=== PATIENT | male | born 1985 | race Caucasian/White ===

== ENCOUNTER 2017-03-10 14:43 | Emergency (ER) | payer OTHER ==
[2017-03-10] MEDS ORDERED: ACETAMINOPHEN TAB 500 MG TAB PO STA (16:18)
[2017-03-10 16:54] LABS: Appearance,Urine Clear (Clear); Basophils # (A) 0.1 k/uL (0-0.2); Basophils % (A) 1 %; Bilirubin,Urine Negative (Negative); CH 32.1; CHCM 34.3; Eosinophils # (A) 0.2 k/uL (0-0.7); Eosinophils % (A) 2 %; Glucose,Urine (UA) Negative (Negative); HDW 2.41; HGB 17.7 gm/dL (13.0-17.5); Ketones,Urine Negative (Negative); Leukocyte Esterase,Urine Negative (Negative); Luc # (Auto) 0.19; Luc % (Auto) 1; Lymphocytes # (A) 2.5 k/uL (1.0-4.8); Lymphocytes % (A) 16 %; MCH 31.5 pg (25.0-35.0); MCHC 33.4 g/dL (31.0-37.0); MCV 94.2 fL (80.0-100.0); Mean Platelet Volume 7.3; Monocytes # (A) 0.9 k/uL (0-1.0); Monocytes % (A) 6 %; Neutrophils # (A) 11.9 k/uL (1.3-7.7); Neutrophils % (A) 75 %; Nitrite,Urine Negative (Negative); PH, Urine 5.5 (5.0-8.0); Protein,Urine Trace (Negative); RBC 5.62 m/uL (4.30-5.90); RDW 13.6 % (11.5-15.5); Specific Gravity,Urine 1.028 (1.001-1.035); UA Billing (MACRO vs. MICRO) CHEM; Urobilinogen,Urine <2.0 mg/dL (<2.0); WBC 15.8 k/uL (3.8-10.6); WBC (Perox) 14.86
--- NOTE | 2017-03-10 16:55 | ED ---
Psych HPI <Leighton Almodovar - Last Filed: 03/10/17 19:04> - General Source: patient, RN notes reviewed Mode of arrival: ambulatory Limitations: no limitations <Law Novoa - Last Filed: 03/11/17 14:06> - General Chief Complaint: Psychiatric Symptoms Stated Complaint: anxiety Time Seen by Provider: 03/10/17 15:51 - History of Present Illness Initial Comments: 31-year-old male present emergency department for psychiatric evaluation. Patient states that most of his life he has felt Paranoid and felt that there people conspiring about him. Patient states that he knows these are not reality ago he states he cannot stop thoughts. Patient states he never seen anybody for these thoughts or feelings. Patient denies any suicidal or homicidal thoughts. Patient states it is felt that his hurt people emotionally. Patient states that he does not tolerate the symptoms anymore that is very anxious and is freaking out. Patient states that he feels that he is scaring his family including his parents. Patient states she has no physical complaints. Denies any cold-like symptoms including cough, runny nose , sore throat, abdominal pain, nausea vomiting. Patient is requesting STD testing even though and is symptom-free he states he just wants recheck. (Law Novoa) - Related Data Home Medications Medication Instructions Recorded Confirmed No Known Home Medications [No 03/10/17 03/10/17 Known Home Medications] Allergies Allergy/AdvReac Type Severity Reaction Status Date / Time No Known Allergies Allergy Verified 03/10/17 16:21 Review of Systems ROS Other: All systems not noted in ROS Statement are negative. <Leighton Almodovar - Last Filed: 03/10/17 19:04> ROS Other: All systems not noted in ROS Statement are negative. <Law Novoa - Last Filed: 03/11/17 14:06> ROS Statement: Those systems with pertinent positive or pertinent negative responses have been documented in the HPI. Past Medical History Past Medical History: No Reported History History of Any Multi-Drug Resistant Organisms: None Reported Past Surgical History: No Surgical Hx Reported Past Psychological History: Anxiety, Bipolar, Depression, Panic Disorder Smoking Status: Current every day smoker Past Alcohol Use History: None Reported Past Drug Use History: None Reported <Law Novoa - Last Filed: 03/11/17 14:06> General Exam Limitations: no limitations General appearance: alert, in no apparent distress Head exam: Present: atraumatic, normocephalic, normal inspection Eye exam: Present: normal appearance, PERRL, EOMI. Absent: scleral icterus, conjunctival injection, periorbital swelling ENT exam: Present: normal exam, normal oropharynx, mucous membranes moist, TM's normal bilaterally, normal external ear exam Neck exam: Present: normal inspection, full ROM. Absent: tenderness, meningismus, lymphadenopathy Respiratory exam: Present: normal lung sounds bilaterally. Absent: respiratory distress, wheezes, rales, rhonchi, stridor Cardiovascular Exam: Present: normal rhythm, tachycardia, normal heart sounds. Absent: systolic murmur, diastolic murmur, rubs, gallop, clicks GI/Abdominal exam: Present: soft, normal bowel sounds. Absent: distended, tenderness, guarding, rebound, rigid Neurological exam: Present: alert, oriented X3, CN II-XII intact Psychiatric exam: Present: flat affect Skin exam: Present: warm, dry, intact, normal color. Absent: rash <Law Novoa - Last Filed: 03/11/17 14:06> Course <Leighton Almodovar - Last Filed: 03/10/17 19:04> <Law Novoa - Last Filed: 03/11/17 14:06> Vital Signs 03/10/17 03/10/17 03/10/17 15:12 17:00 18:43 Temperature 99.8 F H 99 F Pulse Rate 113 H 84 Respiratory 18 20 Rate Blood Pressure 135/84 136/87 O2 Sat by Pulse 99 98 Oximetry 03/11/17 09:00 Temperature Pulse Rate 61 Respiratory 16 Rate Blood Pressure 134/73 O2 Sat by Pulse 100 Oximetry - Reevaluation(s) Reevaluation #1: 03/10/17 19:04 I did evaluate this case a clinical certification was filled out by me. (Leighton Almodovar) Medical Decision Making - Lab Data Result diagrams: 03/10/17 16:43 03/10/17 16:43 <Leighton Almodovar - Last Filed: 03/10/17 19:04> - Lab Data Result diagrams: 03/10/17 16:43 03/10/17 16:43 <Law Novoa - Last Filed: 04/17/17 14:06> - Medical Decision Making Patient was reevaluated today by [facility] and he felt that he does not meet inpatient criteria. Patient has appointment set up in 24 hours for intake and to see psychiatrist. Patient will be given a diagnosis of anxiety rule out psychosis by [facility]. Patient will be discharged to the care of family in which he is staying with family and [facility] worker states that this is agreeable plan. (Law Novoa) - Lab Data Lab Results 03/10/17 03/10/17 03/10/17 Range/Units 16:08 16:43 16:43 WBC 15.8 H (3.8-10.6) k/uL RBC 5.62 (4.30-5.90) m/uL Hgb 17.7 H (13.0-17.5) gm/dL Hct 53.0 (39.0-53.0) % MCV 94.2 (80.0-100.0) fL MCH 31.5 (25.0-35.0) pg MCHC 33.4 (31.0-37.0) g/dL RDW 13.6 (11.5-15.5) % Plt Count 236 (150-450) k/uL Neutrophils % 75 % Lymphocytes % 16 % Monocytes % 6 % Eosinophils % 2 % Basophils % 1 % Neutrophils # 11.9 H (1.3-7.7) k/uL Lymphocytes # 2.5 (1.0-4.8) k/uL Monocytes # 0.9 (0-1.0) k/uL Eosinophils # 0.2 (0-0.7) k/uL Basophils # 0.1 (0-0.2) k/uL Sodium 146 H (137-145) mmol/L Potassium 4.1 (3.5-5.1) mmol/L Chloride 107 (98-107) mmol/L Carbon Dioxide 26 (22-30) mmol/L Anion Gap 13 mmol/L BUN 13 (9-20) mg/dL Creatinine 0.74 (0.66-1.25) mg/dL Est GFR (MDRD) Af Amer >60 (>60 ml/min/1.73 sqM) Est GFR (MDRD) Non-Af >60 (>60 ml/min/1.73 sqM) Glucose 90 (74-99) mg/dL Calcium 9.6 (8.4-10.2) mg/dL Total Bilirubin 0.5 (0.2-1.3) mg/dL AST 22 (17-59) U/L ALT 45 (21-72) U/L Alkaline Phosphatase 47 (38-126) U/L Total Protein 7.7 (6.3-8.2) g/dL Albumin 4.7 (3.5-5.0) g/dL Urine Color Urine Appearance (Clear) Urine pH (5.0-8.0) Ur Specific [place] (1.001-1.035) Urine Protein (Negative) Urine Glucose (UA) (Negative) Urine Ketones (Negative) Urine Blood (Negative) Urine Nitrite (Negative) Urine Bilirubin (Negative) Urine Urobilinogen (<2.0) mg/dL Ur Leukocyte Esterase (Negative) Urine Opiates Screen (NotDetected) Ur Oxycodone Screen (NotDetected) Urine Methadone Screen (NotDetected) Ur Propoxyphene Screen (NotDetected) Ur Barbiturates Screen (NotDetected) U Tricyclic Antidepress (NotDetected) Ur Phencyclidine Scrn (NotDetected) Ur Amphetamines Screen (NotDetected) U Methamphetamines Scrn (NotDetected) U Benzodiazepines Scrn (NotDetected) Urine Cocaine Screen (NotDetected) U Marijuana (THC) Screen (NotDetected) Influenza Type A RNA Not Detected (Not Detectd) Influenza Type B (PCR) Not Detected (Not Detectd) 03/10/17 Range/Units 16:43 WBC (3.8-10.6) k/uL RBC (4.30-5.90) m/uL Hgb (13.0-17.5) gm/dL Hct (39.0-53.0) % MCV (80.0-100.0) fL MCH (25.0-35.0) pg MCHC (31.0-37.0) g/dL RDW (11.5-15.5) % Plt Count (150-450) k/uL Neutrophils % % Lymphocytes % % Monocytes % % Eosinophils % % Basophils % % Neutrophils # (1.3-7.7) k/uL Lymphocytes # (1.0-4.8) k/uL Monocytes # (0-1.0) k/uL Eosinophils # (0-0.7) k/uL Basophils # (0-0.2) k/uL Sodium (137-145) mmol/L Potassium (3.5-5.1) mmol/L Chloride (98-107) mmol/L Carbon Dioxide (22-30) mmol/L Anion Gap mmol/L BUN (9-20) mg/dL Creatinine (0.66-1.25) mg/dL Est GFR (MDRD) Af Amer (>60 ml/min/1.73 sqM) Est GFR (MDRD) Non-Af (>60 ml/min/1.73 sqM) Glucose (74-99) mg/dL Calcium (8.4-10.2) mg/dL Total Bilirubin (0.2-1.3) mg/dL AST (17-59) U/L ALT (21-72) U/L Alkaline Phosphatase (38-126) U/L Total Protein (6.3-8.2) g/dL Albumin (3.5-5.0) g/dL Urine Color Yellow Urine Appearance Clear (Clear) Urine pH 5.5 (5.0-8.0) Ur Specific [place] 1.028 (1.001-1.035) Urine Protein Trace H (Negative) Urine Glucose (UA) Negative (Negative) Urine Ketones Negative (Negative) Urine Blood Negative (Negative) Urine Nitrite Negative (Negative) Urine Bilirubin Negative (Negative) Urine Urobilinogen <2.0 (<2.0) mg/dL Ur Leukocyte Esterase Negative (Negative) Urine Opiates Screen Not Detected (NotDetected) Ur Oxycodone Screen Not Detected (NotDetected) Urine Methadone Screen Not Detected (NotDetected) Ur Propoxyphene Screen Not Detected (NotDetected) Ur Barbiturates Screen Not Detected (NotDetected) U Tricyclic Antidepress Not Detected (NotDetected) Ur Phencyclidine Scrn Not Detected (NotDetected) Ur Amphetamines Screen Not Detected (NotDetected) U Methamphetamines Scrn Not Detected (NotDetected) U Benzodiazepines Scrn Not Detected (NotDetected) Urine Cocaine Screen Not Detected (NotDetected) U Marijuana (THC) Screen Detected H (NotDetected) Influenza Type A RNA (Not Detectd) Influenza Type B (PCR) (Not Detectd) Disposition <Leighton Almodovar - Last Filed: 03/10/17 19:04> Time of Disposition: 14:06 <Law Novoa - Last Filed: 03/11/17 14:06> Clinical Impression: Anxiety, Psychosis Disposition: HOME SELF-CARE Condition: Stable Instructions: Anxiety (ED) Additional Instructions: Please return to the Emergency Department if symptoms worsen or any other concerns.
[2017-03-10 17:06] LABS: ALT 45 U/L (21-72); AST 22 U/L (17-59); Alkaline Phosphatase 47 U/L (38-126); Anion Gap 13 mmol/L; Blood Urea Nitrogen 13 mg/dL (9-20); Calcium 9.6 mg/dL (8.4-10.2); Carbon Dioxide 26 mmol/L (22-30); Chloride 107 mmol/L (98-107); Glucose 90 mg/dL (74-99); Non-African American GFR(MDRD) >60 (>60 ml/min/1.73 sqM); Potassium 4.1 mmol/L (3.5-5.1); Sodium 146 mmol/L (137-145); Total Bilirubin 0.5 mg/dL (0.2-1.3); Total Protein 7.7 g/dL (6.3-8.2)
--- NOTE | 2017-03-10 17:29 | XR ---
EXAMINATION TYPE: XR chest 2V DATE OF EXAM: 03/10/2017 4:59 PM COMPARISON: NONE HISTORY: Fever TECHNIQUE: Frontal and lateral views of the chest are obtained. FINDINGS: Heart and mediastinum are normal. Lungs are clear. Diaphragm is normal. Bony thorax appear s normal. IMPRESSION: Normal chest
[2017-03-10] MEDS ORDERED: NICOTINE 21MG/24HR PATCH TRANSDERM STA (18:28)
[2017-03-11 14:12] VITALS: BP 134/75; PULSE 67; RESP 18; TEMP 98.6
== END 2017-03-11 14:18 | disposition home or self-care (01) ==
LOC: EC 14:43
DX: F41.9 Anxiety disorder, unspecified (principal); F29 Unspecified psychosis not due to a substance or known physiological condition; F17.200 Nicotine dependence, unspecified, uncomplicated
CPT/HCPCS: 99285; 82075; 36415; 80053; 87591; 87491; 85025; 81003; 80306; 87502; 71020; S4990

== ENCOUNTER 2017-03-18 16:30 | Emergency (ER) | payer OTHER ==
[2017-03-18 16:36] VITALS: BP 154/91; PULSE 73; RESP 18; TEMP 99.1
--- NOTE | 2017-03-18 17:05 | ED ---
Head Injury HPI - General Chief complaint: Head Injury Stated complaint: Head Injury Time Seen by Provider: 03/18/17 16:37 Source: patient, RN notes reviewed Mode of arrival: ambulatory Limitations: no limitations - History of Present Illness Initial comments: 31-year-old male presents to the emergency department with a chief complaint of head injury. Patient states that he "the left side of the head. Patient states this happened about 2 weeks ago. Patient states he continues to have some headache and confusion and some tenderness of the left side of the head so he was concerned. Patient denies any bleeding. Patient states that his symptoms just nursing the same there are not worsening. Patient denies any other history with this. Patient states that he can't make sure that everything was okay. Patient denies any recent fever, chills, shortness of breath, chest pain, back pain, abdominal pain, nausea vomiting, numbness or tingling, dysuria or hematuria, constipation or diarrhea, visual changes, or any other current symptoms. Place: home - Related Data Home Medications Medication Instructions Recorded Confirmed No Known Home Medications [No 03/10/17 03/10/17 Known Home Medications] Allergies/Adverse reactions: Allergies Allergy/AdvReac Type Severity Reaction Status Date / Time No Known Allergies Allergy Verified 03/18/17 16:36 Review of Systems ROS Statement: Those systems with pertinent positive or pertinent negative responses have been documented in the HPI. ROS Other: All systems not noted in ROS Statement are negative. Past Medical History Past Medical History: No Reported History History of Any Multi-Drug Resistant Organisms: None Reported Past Surgical History: No Surgical Hx Reported Past Psychological History: Anxiety, Bipolar, Depression, Panic Disorder Smoking Status: Current every day smoker Past Alcohol Use History: None Reported Past Drug Use History: None Reported General Exam - General Exam Comments Initial Comments: General: The patient is awake and alert, in no distress, and does not appear acutely ill. Eye: Pupils are equal, round and reactive to light, extra-ocular movements are intact; there is normal conjunctiva bilaterally. No signs of icterus. Ears, nose, mouth and throat: There are moist mucous membranes. Neck: The neck is supple, there is no tenderness. Cardiovascular: There is a regular rate and rhythm. No murmur, rub or gallop is appreciated. Respiratory: Lungs are clear to auscultation, respirations are non-labored, breath sounds are equal. No wheezes, stridor, rales, or rhonchi. Gastrointestinal: Soft, non-distended, non-tender abdomen without masses or organomegaly noted. There is no rebound or guarding present. No CVA tenderness. Bowel sounds are unremarkable. Back: There is no tenderness to palpation in the midline. There is no obvious deformity. No rashes noted. Musculoskeletal: Normal ROM, no tenderness, There is no pedal edema. There is no calf tenderness or swelling. Sensation intact. Pulses equal bilaterally 2+. Neurological: CN II-XII intact, There are no obvious motor or sensory deficits. Coordination appears grossly intact. Speech is normal. Skin: Skin is warm and dry and no rashes or lesions are noted. Psychiatric: Cooperative, appropriate mood & affect, normal judgment. Limitations: no limitations Course Vital Signs 03/18/17 16:32 Temperature 99.1 F Pulse Rate 73 Respiratory 18 Rate Blood Pressure 154/91 O2 Sat by Pulse 98 Oximetry Medical Decision Making - Medical Decision Making 31-year-old male presents emergency Department chief complaint headache and confusion. This ismost likely has a concussion and postconcussion syndrome. We discussed the CAT scan is reviewed and does not show any acute process. Discussed follow-up and return parameters. All patient's questions. He stated that he understood and agreed and will be discharged home. - Radiology Data Radiology results: report reviewed, image reviewed Disposition Clinical Impression: Concussion without loss of consciousness Disposition: HOME SELF-CARE Condition: Stable Instructions: Concussion (ED) Additional Instructions: Please use medication as discussed. Please follow up with family doctor if symptoms have not improved over the next two days. Please return to the emergency room if your symptoms increase or worsen or for any other concerns. Referrals: Lm Avalos MD [STAFF PHYSICIAN] - 1-2 days Time of Disposition: 17:19
--- NOTE | 2017-03-18 17:12 | CT ---
EXAMINATION TYPE: CT brain wo con DATE OF EXAM: 03/18/2017 5:03 PM COMPARISON: NONE HISTORY: Hit in left zoroastrianism 2 weeks ago. Headaches since. CT DLP: 1072.30 mGycm. Automated Exposure Control for Dose Reduction was Utilized. TECHNIQUE: CT scan of the head is performed without contrast. FINDINGS: There is no acute intracranial hemorrhage, mass effect, or midline shift identified. The ventricles and sulci are within normal limits in size. Yoo-white matter differentiation is maintain ed. The globes are intact and the visualized sinuses are clear. The calvarium is intact. Soft tissue density bilateral external auditory canals, left worse than right is likely consistent with cerumen. IMPRESSION: No acute intracranial hemorrhage, mass effect, or midline shift is seen.
== END 2017-03-18 17:33 | disposition home or self-care (01) ==
LOC: EC 16:30
DX: S06.0X0A Concussion without loss of consciousness, initial encounter (principal); F17.200 Nicotine dependence, unspecified, uncomplicated; W51.XXXA Accidental striking against or bumped into by another person, initial encounter
CPT/HCPCS: 70450; 99283

== ENCOUNTER 2018-04-17 19:56 | Emergency (ER) | payer OTHER ==
[2018-04-17 20:07] VITALS: BP 141/77; PULSE 89; RESP 18; TEMP 100.4
--- NOTE | 2018-04-17 20:13 | ED ---
General Adult HPI - General Chief complaint: Extremity Injury, Upper Stated complaint: Finger Injury /[facility] Time Seen by Provider: 04/17/18 20:08 Source: patient, RN notes reviewed Mode of arrival: ambulatory Limitations: no limitations - History of Present Illness Initial comments: Patient 32-year-old male presenting to the emergency room today with a chief complaint of an injury to the right pinky finger. He does admit that he was using a slide hammer when he went to hit it backwards he pinched the right ring finger. Patient does admit that it did break the skin is at some little bit of bleeding. He states that his tetanus is up-to-date. He missed some pain locally but denies any other complaints or symptoms. - Related Data Home Medications Medication Instructions Recorded Confirmed No Known Home Medications [No 03/10/17 03/10/17 Known Home Medications] Allergies Allergy/AdvReac Type Severity Reaction Status Date / Time No Known Allergies Allergy Verified 04/17/18 20:06 Review of Systems ROS Statement: Those systems with pertinent positive or pertinent negative responses have been documented in the HPI. ROS Other: All systems not noted in ROS Statement are negative. Past Medical History Past Medical History: No Reported History History of Any Multi-Drug Resistant Organisms: None Reported Past Surgical History: No Surgical Hx Reported Past Psychological History: Anxiety, Bipolar, Depression, Panic Disorder Smoking Status: Current every day smoker Past Alcohol Use History: None Reported Past Drug Use History: None Reported General Exam - General Exam Comments Initial Comments: General: The patient is awake and alert, in no distress, and does not appear acutely ill. Neck: The neck is supple. Musculoskeletal: Superficial abrasion to the volar aspect of the distal right fifth digit. Patient shows full range of motion. Sensations intact. Radial pulses 2+. Cap refill less than 2 seconds. Strength 5/5. Neurological: A&O x 3. CN II-XII intact, There are no obvious motor or sensory deficits. Coordination appears grossly intact. Speech is normal. Skin: Skin is warm and dry and no rashes or lesions are noted. Psychiatric: Normal mood and affect. Limitations: no limitations Course Vital Signs 04/17/18 20:03 Temperature 100.4 F H Pulse Rate 89 Respiratory 18 Rate Blood Pressure 141/77 O2 Sat by Pulse 97 Oximetry Medical Decision Making - Medical Decision Making X-ray reviewed and negative for any acute fracture dislocation. Results were discussed with the patient. Disposition Clinical Impression: Finger contusion, Abrasion hand Disposition: HOME SELF-CARE Condition: Good Instructions: Contusion in Adults (ED) Additional Instructions: Please continue to ice elevate the affected area. Please use ibuprofen for pain as needed. Please follow-up with family doctor in the next 2 days of symptoms have not improved. Please return to emergency room if the symptoms increase or worsen or for any other concerns. Is patient prescribed a controlled substance at d/c from ED?: No Referrals: None,Stated [Primary Care Provider] - 1-2 days Danny Richardson MD [REFERRING] - 1-2 days Supa Tamayo DO [STAFF PHYSICIAN] - 1-2 days Time of Disposition: 20:34
--- NOTE | 2018-04-17 20:36 | XR ---
EXAMINATION TYPE: XR finger RT right little finger DATE OF EXAM: 04/17/2018 COMPARISON: NONE HISTORY: Little finger injury TECHNIQUE: 3 views FINDINGS: I see no fracture nor dislocation. Joint spaces are normal. There is mild soft tissue swell ing. IMPRESSION: No fracture seen.
== END 2018-04-17 20:43 | disposition home or self-care (01) ==
LOC: EC 19:56
DX: S60.051A Contusion of right little finger without damage to nail, initial encounter (principal); F17.200 Nicotine dependence, unspecified, uncomplicated; W23.0XXA Caught, crushed, jammed, or pinched between moving objects, initial encounter; Y99.0 Civilian activity done for income or pay
CPT/HCPCS: 99283